=== PATIENT | male | born 2000 | race Caucasian/White ===

== ENCOUNTER 2021-01-21 06:41 | Day surgery (SDC) | payer OTHER ==
[~2021-01-21] VITALS: Ht 182.9 cm; Wt 79.4 kg
--- NOTE | ~2021-01-21 | HP ---
PATIENT: SALONI LEDESMA MEDICAL RECORD: [id number] ACCOUNT: [id number] LOCATION:[facility] : 99 ADMISSION DATE: 01/21/21 PCP: HISTORY AND PHYSICAL EXAMINATION PREOPERATIVE HISTORY AND PHYSICAL HISTORY OF PRESENT ILLNESS: Saloni is 20. He has been having persistent problems with chronic pharyngitis, been admitted for tonsillectomy and adenoidectomy. PAST MEDICAL HISTORY: Otherwise negative. PAST SURGICAL HISTORY: None. CURRENT MEDICATIONS: None. ALLERGIES: No known drug allergies. PHYSICAL EXAMINATION: GENERAL: He is healthy appearing. Developmentally normal. FACE: Normal, symmetric, no lesions. EYES: Sclerae and conjunctivae are normal. EARS: Canals and TMs normal. NOSE: Some septal deviation, but no obstruction. ORAL CAVITY AND OROPHARYNX: 4+ tonsils, normal palate. NECK: Small jugulodigastric adenopathy bilaterally. CHEST: Clear. CARDIOVASCULAR: Regular rate and rhythm, no murmur. EXTREMITIES: Normal. IMPRESSION: Chronic pharyngitis. PLAN: Tonsillectomy and adenoidectomy. TRANSINT:[id number] Voice Confirmation ID: [id number] DOCUMENT ID: [id number] ELIZA BLANKENSHIP MD CC: [id number] DICTATION DATE: 01/20/21 1405 PRODUCTION SUPERVISOR OFF SHIFT: 01/20/21 1420 PRE [place] [id number] [place] [id number]
--- NOTE | ~2021-01-21 | OP ---
PATIENT NAME: SALONI LEDESMA MEDICAL RECORD: [id number] :89 LOCATION:[facility] ADMISSION DATE: SURGEON: ELIZA BLOOM MD DATE OF OPERATION: 01/21/2021 PREOPERATIVE DIAGNOSES: Chronic pharyngitis and adenotonsillar hypertrophy. POSTOPERATIVE DIAGNOSES: Chronic pharyngitis and adenotonsillar hypertrophy. PROCEDURE: Tonsillectomy and adenoidectomy. SURGEON: Eliza Bloom MD ANESTHESIA: General orotracheal. BLOOD LOSS: Less than 5 mL. SPECIMENS: Right and left tonsil. COMPLICATIONS: None. DISPOSITION: Recovery, stable. PROCEDURE IN DETAIL: He was brought to the operating room and placed in supine position, sedated and intubated by anesthesia. The eyes were taped. Table was turned 90 degrees. Head drape was applied. He was positioned for tonsillectomy. Using a headlight, a Deepak-Jairo mouth gag was carefully inserted and elevated on a towel on his chest. The palate was examined and palpated. It was normal. A red rubber catheter was placed into the right side the nose and pharynx were grasped with tonsillar clamp to retract the soft palate. Using a mirror, the nasopharynx was examined. Suction cautery on a setting of 35 was used to ablate and suction out the adenoid tissue near the choana. The choana and eustachian orifices were normal bilaterally. A little bit large turbinates. The red rubber catheter was let down and removed. Tonsils were massive, 4+ and kissing. It was grasped with an Allis clamp and a spatula tip cautery on a setting of 8 was used to dissect out the tonsil along its capsule, preserving the anterior and posterior tonsillar pillar. The left tonsil was removed in the same fashion. Then, both sides of the nose were irrigated with saline. The pharynx was suctioned. Tonsillar fossae were agitated. Suction cautery on a setting of 18 was used to control minimal oozing. With the field clean and dry, the Deepak-Jairo mouth gag was let down and removed. He was awakened, extubated and transferred to recovery in good condition. No complications. TRANSINT:[id number] Voice Confirmation ID: [id number] DOCUMENT ID: [id number] ELIZA BLOOM MD CC: [id number] DICTATION DATE: 01/21/21 0940 GENERAL LABOR FORKLIFT OPERATOR: 01/21/21 1354 REG [facility] [address] [place] [id number]
[2021-01-21 07:36] VITALS: BP 111/63; Ht 182.9 cm; Wt 79.4 kg
--- NOTE | 2021-01-21 09:10 | NUR ---
OPA IN AIRWAY ON ADMIT TO [facility]
== END 2021-01-21 10:30 | disposition home or self-care (01) ==
LOC: D.OPS 06:41
PROVIDERS: ATTEND Otolaryngology
DX: J31.2 Chronic pharyngitis (principal); J35.3 Hypertrophy of tonsils with hypertrophy of adenoids

== ENCOUNTER 2021-01-26 15:15 | Emergency (ER) | payer OTHER ==
[~2021-01-26] VITALS: Ht 182.9 cm; Wt 77.3 kg
[2021-01-26 15:35] LABS: BASOPHILS 0.2 % (0-2); EOSINOPHILS 0.9 % (0-7); HEMATOCRIT 48.4 % (42.0-54.0); HEMOGLOBIN 16.9 g/dL (13.5-17.5); IMMATURE GRANULOCYTES 0.2 % (0-5); LYMPHOCYTE ABS# 1.84 10x3/uL (1.32-3.57); LYMPHOCYTES 14.3 % (15-50); MCH 30.3 pg (26.0-34.0); MCHC 34.9 g/dL (31.0-37.0); MCV 86.7 fL (80.0-100.0); MEAN PLATELET VOLUME 9.9 fL (7.4-10.4); MONOCYTES 7.5 % (2-11); NEUTROPHIL ABS# 9.86 10x3/uL (1.78-5.38); NEUTROPHILS 76.9 % (40-80); PLATELET COUNT 255 10x3/uL (130-400); RBC 5.58 10x6/uL (4.20-6.10); RDW 12.8 % (11.5-14.5); WBC 12.8 10x3/uL (4.8-10.8)
[2021-01-26 15:40] VITALS: BP 132/71; Ht 182.9 cm; Wt 77.3 kg
[2021-01-26 15:42] LABS: CALC OSMOLALITY 272 mosm/kg (275-300); CALCIUM 9.8 mg/dL (8.5-10.1); CARBON DIOXIDE 30.3 mmol/L (21.0-32.0); CHLORIDE - SERUM 98 mmol/L (98-107); GLUCOSE 112 mg/dL (74-106); POTASSIUM - SERUM 3.6 mmol/L (3.5-5.1); SODIUM 136 mmol/L (136-145); UREA NITROGEN 12 mg/dL (7-18); eGFR NON AFRICAN AMERICAN > 90 mL/min (90-120)
[2021-01-26] MEDS ORDERED: HYDROCODON-ACET15 ML PO (15:42)
[2021-01-26 15:51] LABS: ALBUMIN 4.4 g/dL (3.4-5.0); ALKALINE PHOSPHATASE 50 U/L (30-120); ALT (SGPT) 22 U/L (10-68); BILIRUBIN - TOTAL 0.61 mg/dL (0.2-1.3)
[2021-01-26 16:09] LABS: INR 4.21 (0.85-1.17); PROTIME 37.8 SECONDS (11.6-15.0)
[2021-01-26 16:11] LABS: APTT 81.3 SECONDS (22.8-39.4)
[2021-01-26 17:24] LABS: APTT 30.2 SECONDS (22.8-39.4); INR 1.21 (0.85-1.17); PROTIME 14.2 SECONDS (11.6-15.0)
== END 2021-01-26 17:44 | disposition home or self-care (01) ==
LOC: D.ER 15:15
PROVIDERS: Family Medicine; Otolaryngology
DX: E86.0 Dehydration (principal); R07.0 Pain in throat; G89.18 Other acute postprocedural pain